=== PATIENT | female | born 1990 | race Caucasian/White ===

== ENCOUNTER → 2019-05-04 11:47 | Outpatient (BNVA) | payer MEDICARE, MEDICAID, SELFPAY | PROVIDERS: Family Provider Family Medicine; PCP Family Medicine; Visit Provider Nurse Practitioner | DX: F70 Mild intellectual disabilities (principal); F63.81 Intermittent explosive disorder; F41.1 Generalized anxiety disorder | CPT/HCPCS: 99214 ==

== ENCOUNTER → 2019-07-05 08:15 | Outpatient (BNVA) | payer MEDICARE, MEDICAID, SELFPAY | PROVIDERS: Family Provider Family Medicine; PCP Family Medicine; Visit Provider Nurse Practitioner | DX: F41.1 Generalized anxiety disorder (principal); F63.81 Intermittent explosive disorder; F70 Mild intellectual disabilities | CPT/HCPCS: 99213 ==

== ENCOUNTER → 2019-09-28 08:07 | Outpatient (BNVA) | payer MEDICARE, MEDICAID, SELFPAY | PROVIDERS: Family Provider Family Medicine; PCP Family Medicine; Visit Provider Nurse Practitioner | DX: F41.1 Generalized anxiety disorder (principal); F63.81 Intermittent explosive disorder; F70 Mild intellectual disabilities | CPT/HCPCS: 99213 ==

== ENCOUNTER → 2019-12-01 08:10 | Outpatient (BNVA) | payer MEDICARE, MEDICAID, SELFPAY | PROVIDERS: Family Provider Family Medicine; PCP Family Medicine; Visit Provider Nurse Practitioner | DX: F70 Mild intellectual disabilities (principal); F63.81 Intermittent explosive disorder; F41.1 Generalized anxiety disorder | CPT/HCPCS: 99214 ==

== ENCOUNTER → 2020-03-02 08:27 | Outpatient (BNVA) | payer MEDICARE, MEDICAID, SELFPAY | PROVIDERS: PCP Family Medicine; Visit Provider Nurse Practitioner | DX: F70 Mild intellectual disabilities (principal); F63.81 Intermittent explosive disorder; F41.1 Generalized anxiety disorder | CPT/HCPCS: 99213 ==

== ENCOUNTER → 2020-04-26 11:04 | Outpatient (BNVA) | payer MEDICARE, MEDICAID, SELFPAY | PROVIDERS: PCP Family Medicine; Visit Provider Nurse Practitioner Women's Health | DX: Z01.419 Encounter for gynecological examination (general) (routine) without abnormal findings (principal); N92.6 Irregular menstruation, unspecified | CPT/HCPCS: 88175 ==

== ENCOUNTER → 2020-05-16 07:37 | Outpatient (BNVA) | payer MEDICARE, MEDICAID, SELFPAY | PROVIDERS: PCP Family Medicine; Visit Provider Nurse Practitioner | DX: F70 Mild intellectual disabilities (principal); F63.81 Intermittent explosive disorder; F41.1 Generalized anxiety disorder | CPT/HCPCS: 99214 ==

== ENCOUNTER → 2020-05-31 14:58 | Outpatient (BNVA) | payer MEDICARE, MEDICAID, SELFPAY | PROVIDERS: PCP Family Medicine; Referring Provider Family Medicine; Visit Provider Podiatrist Foot & Ankle Surgery | DX: M24.571 Contracture, right ankle (principal); M21.611 Bunion of right foot | CPT/HCPCS: 73610; 73630 ==

== ENCOUNTER → 2020-06-15 08:12 | Outpatient (BNVA) | payer MEDICARE, MEDICAID, SELFPAY | PROVIDERS: PCP Family Medicine; Visit Provider Nurse Practitioner | DX: F41.1 Generalized anxiety disorder (principal); F63.81 Intermittent explosive disorder; F70 Mild intellectual disabilities | CPT/HCPCS: 99214 ==

== ENCOUNTER → 2020-07-11 13:17 | Outpatient (BNVA) | payer MEDICARE, MEDICAID, SELFPAY | PROVIDERS: PCP Family Medicine; Visit Provider Nurse Practitioner | DX: F41.1 Generalized anxiety disorder (principal); F63.81 Intermittent explosive disorder; F70 Mild intellectual disabilities | CPT/HCPCS: 99214 ==

== ENCOUNTER 2020-07-11 15:00 | Outpatient (CLI) | payer MEDICARE, MEDICAID, SELFPAY | END 2020-07-11 15:01 | disposition home or self-care (01) | LOC: SPT 15:01 | PROVIDERS: PCP Family Medicine; Visit Provider Podiatrist Foot & Ankle Surgery | DX: Z46.89 Encounter for fitting and adjustment of other specified devices (principal); M24.571 Contracture, right ankle; M25.579 Pain in unspecified ankle and joints of unspecified foot; M79.673 Pain in unspecified foot | CPT/HCPCS: 97760; L3030 ==

== ENCOUNTER 2020-08-10 11:24 | Emergency (ER) | payer MEDICARE, MEDICAID, SELFPAY ==
[2020-08-10 11:26] VITALS: BP 131/92; PULSE 111; RESP 16; TEMP 37.1; O2SAT 97; BMI 48.0
--- NOTE | 2020-08-10 11:35 | W.ED.ABDPA2 ---
HPI - Abdominal Pain General: Chief Complaint: Abdominal Pain Stated Complaint: ABD PAIN Time Seen by Provider: 08/10/20 11:27 Source: patient and other (caregiver) Mode of arrival: ambulatory Limitations: other (developmental delay) History of Present Illness: HPI narrative: This is a 29-year-old female patient with a history of developmental delay who lives in a fci and presents to the emergency department with a 12-hour history of right upper quadrant abdominal pain. There is associated nausea and vomiting. No fever. No known aggravating or relieving factors. No urinary symptoms. She went to her primary care provider's office and was advised to come to the emergency department to be evaluated. MD elicited complaint: abdominal pain Pertinent past history: none Onset (ago): hour(s) (12) Pain Consistency: constant Location: RUQ Severity: moderate Quality: stabbing Radiation: none Exacerbating factors: nothing Relieving factors: nothing Associated Symptoms: Reports anorexia, nausea and vomiting; Denies belching, bloating, change in bowel habits, change in stool character, chills, coffee ground emesis, constipation, GI cramping, diarrhea, dyspepsia, dysuria, excessive flatus, fever(s), heartburn, hematochezia, hematuria, hematemesis, fecal incontinence, loose stools, melena, poor appetite and syncope Review of Systems General: Reports: 10 or more systems reviewed and unremarkable except in HPI and below Const: Denies: fever(s) or chills Card: Denies: syncope GI: Reports: nausea and vomiting; Denies: hematemesis, coffee ground emesis, heartburn, diarrhea, constipation, bloating, GI cramping, belching, excessive flatus, fecal incontinence, change in bowel habits, change in stool character, hematochezia or melena : Denies: dysuria or hematuria PFS ED PFSH: Medical History Bipolar depression Chronic GERD Generalized anxiety disorder IBS (irritable bowel syndrome) more constipation Intermittent explosive disorder Irregular periods Mild intellectual disabilities No pertinent past medical history neghx: htn,dm,thyroid,dvt/pe PCP: Dr Henley Surgical History History of wisdom tooth extraction Family History Unknown Patient denies medical problems Denies family history of: hypertension, heart disease, stroke, hypercholesterolemia, thyroid problems. Patient is adopted and does not know all the details of her biological family. Physical Exam Const: COMMON NORMALS: no acute distress, patient oriented x3, no limitations, alert and well nourished NUTRITIONAL APPEARANCE: obese morbidly obese HENMT: COMMON NORMALS: normocephalic, atraumatic and moist oral mucous membranes HEAD & SCALP: normocephalic and atraumatic Neck/C-Spine: COMMON NORMALS: no meningeal signs and no JVD Resp: COMMON NORMALS: normal respiratory effort, No retractions, No use of accessory muscles, clear to auscultation bilaterally and percussion normal AUSCULTATION: clear to auscultation bilaterally PERCUSSION: percussion normal Cardio: COMMON NORMALS: no JVD, regular rate, regular rhythm, S1 normal heart sound present, S2 normal heart sound present, No gallops present (Cardio), No clicks present (Cardio), No murmurs present (Cardio), No rub (Cardio) and Peripheral pulses 2+ throughout RATE: regular rate RHYTHM: regular rhythm HEART SOUNDS: S1 normal heart sound present and S2 normal heart sound present PERIPHERAL PULSES: Peripheral pulses 2+ throughout GI: COMMON NORMALS: Normal to inspection, nondistended, normoactive bowel sounds present, Soft to palpation, No hepatosplenomegaly present, no masses and no bruits PALPATION: Yes Soft to palpation, Yes Tenderness to palpation present (GI) Details: RUQ, Yes Guarding due to palpation present (GI) in the RUQ, Yes No hepatosplenomegaly present and No Rebound tenderness present OTHER: positive Deutsch's sign Extremity: COMMON NORMALS: normal to inspection, full ROM, capillary refill normal, no calf tenderness and no pedal edema Neuro: COMMON NORMALS: patient oriented x3 SENSORIUM/ORIENTATION: Yes alert MENINGEAL SIGNS: Yes no meningeal signs Course Reevaluation(s): Reevaluation #1: Discussed lab and imaging findings in my conversation with the surgeon with the patient and her caregiver. Explained that she does not need hospital admission or require emergent surgery. Advised on what the surgeon suggested and the voiced understanding and in agreement with the plan. I will also give a prescription for some pain medication will last until she sees the surgeon. Time: 13:10 Consultations: Consultation #1: Discussed the patient with Dr. Tavarez, surgeon. He advised that since her liver enzymes normal and she does not appear to be septic she can be managed on an outpatient basis. He advised that she be discharged with a prescription for Augmentin 875 milligrams twice daily for 10 days. She should follow-up with him on Friday and she should be on a liquid protein diet until then. Time: 13:04 Vital Signs: Vital signs: Vital Signs Temperature 98.8 F 08/10/20 11:26 Pulse Rate 90 08/10/20 14:24 Respiratory Rate 16 08/10/20 14:24 Blood Pressure 131/88 08/10/20 14:24 Pulse Oximetry 97 08/10/20 14:24 MDM - Abdominal Pain MDM Narrative: Medical decision making narrative: 29-year-old female patient who presents to the emergency department with right upper quadrant pain and evaluation in the ED is consistent with acute cholecystitis. Liver enzymes are normal, white cell count just mildly elevated, and she is appropriate for outpatient therapy and to follow-up with the surgeon on an outpatient basis. She was given a dose of Zosyn in the emergency department and discharged home with a prescription for Augmentin. Medical Records: Attestation: I reviewed the patient's medical records. Lab Data: Attestation: I reviewed the patient's lab results. Labs: Lab Results 08/10/20 08/10/20 08/10/20 Range/Units 11:37 11:37 11:37 WBC 13.5 H (4.0-10.0) 10^3/ uL RBC 4.61 (4.1-5.3) 10^6/u L Hgb 13.6 (11.5-15.3) g/dL Hct 40.8 (37.0-47.0) % MCV 88.5 (81-99) fL MCH 29.5 (28.0-34.0) pg MCHC 33.3 (30.0-36.0) g/dL RDW 12.2 (12.1-15.1) % Plt Count 288 (130-400) 10^3/c mm MPV 10.1 (7.4-10.4) fL Neut % (Auto) 75.0 % Lymph % (Auto) 19.4 % [place] % (Auto) 5.0 % Eos % (Auto) 0.1 % Baso % (Auto) 0.3 % Neut # (Auto) 10.12 H (1.8-7.7) 10^3/u L Lymph # (Auto) 2.6 (0.8-4.8) 10^3/u L [place] # (Auto) 0.7 (0.2-0.9) 10^3/u L Eos # (Auto) 0.0 (0.0-0.8) 10^3/u L Baso # (Auto) 0.0 (0.0-0.1) 10^3/u L Nucleated RBC % (a uto) 0 % Nucleated RBCs # 0.0 /100WBC Sodium 133 L (136-145) mmol/L Potassium 3.8 (3.5-5.1) mmol/L Chloride 94 L (98-107) mmol/L Carbon Dioxide 24 (22-29) mmol/L Anion Gap 18.8 (5-19) BUN 5 L (6-20) mg/dL Creatinine 0.4 L (0.5-0.9) mg/dL GFR Calculation 186.2 H (90-130) mL/min Glucose 104 (65-115) mg/dL Calculated Osmolal ity 274 L (285-295) mOsm/k g Calcium 8.4 L (8.5-10.5) mg/dL Total Bilirubin 0.3 (0.15-1.2) mg/dL AST 17 (0-32) U/L ALT 19 (0-33) U/L Alkaline Phosphata se 73 (35-105) IU/L C-Reactive Protein 12.9 H (0.0-4.9) mg/L Total Protein 7.0 (6.6-8.7) g/dL Albumin 3.9 (3.5-5.2) g/dL Globulin 3.1 (1.3-4.6) g/dL Lipase 18 (13-60) U/L HCG, Qual Negative (Negative) Urine Color (Yellow) Urine Appearance (CLEAR) Urine pH (5-7) Ur Specific Gravit y (1.005-1.030) Urine Protein (Negative) Urine Glucose (UA) (Normal) Urine Ketones (Negative) Urine Blood (Negative) Urine Nitrate (Negative) Urine Bilirubin (Negative) Urine Urobilinogen (Negative) mg/dL Ur Leukocyte Naz ase (Negative) Urine RBC (0-2) /hpf Urine WBC (0-5) /hpf Ur Squamous Epith Cells (0-5) /hpf Amorphous Sediment Urine Bacteria (NONE) /hpf 08/10/20 Range/Units 11:53 WBC (4.0-10.0) 10^3/ uL RBC (4.1-5.3) 10^6/u L Hgb (11.5-15.3) g/dL Hct (37.0-47.0) % MCV (81-99) fL MCH (28.0-34.0) pg MCHC (30.0-36.0) g/dL RDW (12.1-15.1) % Plt Count (130-400) 10^3/c mm MPV (7.4-10.4) fL Neut % (Auto) % Lymph % (Auto) % [place] % (Auto) % Eos % (Auto) % Baso % (Auto) % Neut # (Auto) (1.8-7.7) 10^3/u L Lymph # (Auto) (0.8-4.8) 10^3/u L [place] # (Auto) (0.2-0.9) 10^3/u L Eos # (Auto) (0.0-0.8) 10^3/u L Baso # (Auto) (0.0-0.1) 10^3/u L Nucleated RBC % (a uto) % Nucleated RBCs # /100WBC Sodium (136-145) mmol/L Potassium (3.5-5.1) mmol/L Chloride (98-107) mmol/L Carbon Dioxide (22-29) mmol/L Anion Gap (5-19) BUN (6-20) mg/dL Creatinine (0.5-0.9) mg/dL GFR Calculation (90-130) mL/min Glucose (65-115) mg/dL Calculated Osmolal ity (285-295) mOsm/k g Calcium (8.5-10.5) mg/dL Total Bilirubin (0.15-1.2) mg/dL AST (0-32) U/L ALT (0-33) U/L Alkaline Phosphata se (35-105) IU/L C-Reactive Protein (0.0-4.9) mg/L Total Protein (6.6-8.7) g/dL Albumin (3.5-5.2) g/dL Globulin (1.3-4.6) g/dL Lipase (13-60) U/L HCG, Qual (Negative) Urine Color Yellow (Yellow) Urine Appearance Clear (CLEAR) Urine pH 5 (5-7) Ur Specific Gravit y 1.015 (1.005-1.030) Urine Protein Neg (Negative) Urine Glucose (UA) Norm (Normal) Urine Ketones Negative (Negative) Urine Blood 3+ H (Negative) Urine Nitrate Negative (Negative) Urine Bilirubin Neg (Negative) Urine Urobilinogen Norm (Negative) mg/dL Ur Leukocyte Naz ase Negative (Negative) Urine RBC 5-10 H (0-2) /hpf Urine WBC 0-4 H (0-5) /hpf Ur Squamous Epith Cells 0-4 H (0-5) /hpf Amorphous Sediment Not Reportable Urine Bacteria Trace (NONE) /hpf Imaging Data ^: US: Attestation: I personally reviewed and interpreted this imaging study as follows: Radiologist's impression: [address] [id number] ReportSigned Patient: Rio Saucedo #: [id number]: 1990Acct#:[id number]/Sex: 29 / FADM Date: 08/10/20Loc: ERRoom/Bed:Attending Dr: Ordering Provider/Ordering MD: Ava Singh MD, [facility] [place] Date of Service: 08/10/20 Procedure(s): US gall bladder 32551 Accession Number(s): [id number] Report Number: [id number] WS: [id number] ULTRASOUND ABDOMEN LIMITED CLINICAL INFORMATION: RUQ pain COMPARISON: None. FINDINGS: Technically difficult examination due to bowel gas. Liver Size: Upper limits of normal Craniocaudal length: 16.0 cm. Echogenicity: Coarse Surface nodularity: None. Mass (size and location): None. Bile ducts Intrahepatic ducts: Normal. Common bile duct is not well visualized. Gallbladder Cholelithiasis. Gallstones: Present Gallbladder sludge: None. Gallbladder wall thickenin.9 mm Pericholecystic fluid: None. Right upper quadrant tenderness. Pancreas Not well visualized Right kidney: Normal. Hydronephrosis: None. Size: 9.9 cm x 5.3 cm x 4.8 cm. Abdominal aorta and IVC Visualized portions are normal. Ascites: None. US/US gall bladder 02074 IMPRESSION: 1. Liver size upper limits of normal with diffuse fatty infiltration. 2. Cholelithiasis with mild gallbladder wall thickening. Recommend correlation for cholecystitis. 3. No pericholecystic fluid. Common bile duct not well visualized. 4. No hydronephrosis in right kidney. Dictated By:Sundeep Escalante MDSigned By:Sundeep Escalante MDSigned Date/Time:08/10/20 1247DD/ 1243 Discharge Plan Discharge Patient Disposition: Home Clinical Impression: Acute calculous cholecystitis Condition: Stable Prescriptions: New Augmentin 875-125 mg tablet 1 tab PO BID Qty: 20 RF: 0 hydrocodone-acetaminophen 5-325 mg tablet 1 tab PO Q8H PRN (Reason: cholecystitis) Qty: 12 RF: 0 Continued omeprazole 20 mg capsule,delayed release(DR/EC) 20 mg PO DAILY@0700 RF: 0 levocetirizine [Xyzal] 5 mg tablet 5 mg PO DAILY@0700 RF: 0 Pepto-Bismol Max St 525 mg/15 mL suspension 525 mg PO Q4H PRN (Reason: Diarrhea) RF: 0 acetaminophen [Tylenol Extra Strength] 500 mg tablet 1,000 mg PO Q6H PRN (Reason: PAIN/ELEVATED TEMP) RF: 0 oxcarbazepine [Trileptal] 150 mg tablet 150 mg PO BID@699,1999 RF: 0 oxcarbazepine [Trileptal] 600 mg tablet 600 mg PO BID@699,1999 RF: 0 Lactobacillus acidophilus [Acidophilus] Capsule 175 mg PO BID@699,1999 RF: 0 (DME) sole supports See Rx Instructions .Route .MEDSUPPLY Qty: 1 RF: 0 cholestyramine (with sugar) 4 gram Powder 4 g PO DAILY@0700 RF: 0 haloperidol 5 mg tablet 5 mg PO DAILY PRN (Reason: Agitation) RF: 0 levonorgestrel-ethinyl estrad 0.15-0.03 mg Tablet 1 tab PO DAILY@1999 RF: 0 Milk of Magnesia 400 mg/5 mL Suspension See Rx Instructions .ROUTE .COMPLEX PRN (Reason: Constipation) RF: 0 Abilify 30 mg tablet 30 mg PO DAILY@1999 RF: 0 Antacid (calcium carbonate) 320 mg calcium (750 mg) Tablet,Chewable 640 mg PO Q12H PRN (Reason: Acid Reflux) RF: 0 Remeron 15 mg tablet 15 mg PO BEDTIME@1999 RF: 0 Zoloft 50 mg tablet 50 mg PO DAILY@699 RF: 0 Risperdal 1 mg tablet 1 mg PO BID@699,1999 RF: 0 Lamictal 100 mg tablet 100 mg PO BID@699,1999 RF: 0 diclofenac sodium 1 % Gel 1 g TOPICAL BID@699,1999 RF: 0 Discharge Orders: Discharge ED (Routine); Ordered 08/10/20 Ordered By: Ava Singh Referrals: Martinez Tavarez MD [Physician] - 08/14/20 Lloyd Henley MD [Primary Care Provider] - Discharge Diet: As Directed and Low Fat Discharge Activity: Increase activity as tolerated Patient Instructions: Cholecystitis (ED), Opioid Safety Activity Restrictions/Additional Instructions: Return for any new or worsening symptoms. Follow-up with the surgeon, Dr. Tavarez on 08/14/2020. Consume a liquid protein diet until you are evaluated by the surgeon, such as boost or Ensure. Avoid fatty foods as this will only worsen your pain. Take the antibiotic as prescribed and the pain medication as needed. 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
[2020-08-10 12:02] LABS: Basophils % 0.3 %; Eosinophils % 0.1 %; HCG Qualitative Urine. Negative (Negative); Hematocrit 40.8 % (37.0-47.0); Hemoglobin 13.6 g/dL (11.5-15.3); Lymphocytes # 2.6 10^3/uL (0.8-4.8); Lymphocytes % 19.4 %; Mean Corpuscular HGB Conc 33.3 g/dL (30.0-36.0); Mean Corpuscular Hemoglobin 29.5 pg (28.0-34.0); Mean Corpuscular Volume 88.5 fL (81-99); Mean Platelet Volume 10.1 fL (7.4-10.4); Monocytes # 0.7 10^3/uL (0.2-0.9); Neutrophils # 10.12 10^3/uL (1.8-7.7); Nucleated Red Blood Cells % 0 %; Platelet Count 288 10^3/cmm (130-400); Positive C 1; Red Blood Count 4.61 10^6/uL (4.1-5.3); Red Cell Distribution Width 12.2 % (12.1-15.1); White Blood Count 13.5 10^3/uL (4.0-10.0)
[2020-08-10 12:14] LABS: Add Urine Microscopic? YES; Bilirubin Urine Neg (Negative); Blood Urine 3+ (Negative); Glucose Urine UA Norm (Normal); Ketones Urine Negative (Negative); Leukocyte Esterase Urine Negative (Negative); Nitrate Urine Negative (Negative); Protein Urine Neg (Negative); Specific Gravity, Urine 1.015 (1.005-1.030); Urine Appearance Clear (CLEAR); Urine Color Yellow (Yellow); Urobilinogen Urine Norm (Negative); WBC Urine 0-4 /hpf (0-5); pH Urine 5 (5-7)
[2020-08-10 12:15] LABS: Add Urine Culture? Yes; Bacteria Urine TRACE /hpf; Squamous Epithelial Cell Urine 0-4 /hpf (0-5)
[2020-08-10 12:30] LABS: Alanine Aminotransferase 19 U/L (0-33); Albumin Level 3.9 g/dL (3.5-5.2); Alkaline Phosphatase 73 IU/L (35-105); Anion Gap 18.8 (5-19); Aspartate Amino Transferase 17 U/L (0-32); Blood Urea Nitrogen 5 mg/dL (6-20); C Reactive Protein 12.9 mg/L (0.0-4.9); Calcium 8.4 mg/dL (8.5-10.5); Carbon Dioxide 24 mmol/L (22-29); Chloride 94 mmol/L (98-107); Globulin 3.1 g/dL (1.3-4.6); Glomerular Filtration Rate 186.2 mL/min (90-130); Glucose 104 mg/dL (65-115); Lipase 18 U/L (13-60); Osmolality Calculated 274 mOsm/kg (285-295); Potassium 3.8 mmol/L (3.5-5.1); Sodium 133 mmol/L (136-145); Total Bilirubin 0.3 mg/dL (0.15-1.2)
[2020-08-10 12:51] LABS: Slide Review Slide Review Perform
[2020-08-10] MEDS: piperacillin-tazobactam 3.375 GM in sodium chloride 0.9% (plus) 50 ML IV (13:20)
[2020-08-10 14:24] VITALS: BP 131/88; PULSE 90; RESP 16; O2SAT 97
== END 2020-08-10 14:28 | disposition home or self-care (01) ==
PROVIDERS: Emergency Provider Family Medicine; PCP Family Medicine
DX: K80.00 Calculus of gallbladder with acute cholecystitis without obstruction (principal)
CPT/HCPCS: 76705; 80053; 81001; 81025; 83690; 85025; 86140; 87086; 96365; 99283; J2543

== ENCOUNTER → 2020-08-22 14:20 | Outpatient (BNVA) | payer MEDICARE, MEDICAID, SELFPAY | PROVIDERS: PCP Family Medicine; Visit Provider Nurse Practitioner | DX: F41.1 Generalized anxiety disorder (principal); F63.81 Intermittent explosive disorder; F70 Mild intellectual disabilities | CPT/HCPCS: 99214 ==

== ENCOUNTER → 2020-08-30 13:44 | Outpatient (BNVA) | payer MEDICARE, MEDICAID, SELFPAY | PROVIDERS: PCP Family Medicine; Visit Provider Surgery | DX: K80.00 Calculus of gallbladder with acute cholecystitis without obstruction (principal); Z20.822 Contact with and (suspected) exposure to COVID-19 | CPT/HCPCS: 87635 ==

== ENCOUNTER 2020-09-04 09:11 | Day surgery (SDC) | payer MEDICARE, MEDICAID, SELFPAY ==
[2020-09-01 14:16] VITALS: BMI 49.4
[2020-09-04] VITALS (9 sets, daily range): BP systolic 98–157; BP diastolic 63–105; PULSE 72–99; RESP 10–20; TEMP 36.1–36.6; O2SAT 90–99
[2020-09-04] MEDS: sodium chloride 0.9% 1,000 ML 30 ML IV (10:10)
[2020-09-04] MEDS: heparin 5,000 unit/mL INJ 1 mL 3000 UNIT SUBCUT (10:20)
--- NOTE | 2020-09-04 10:50 | ANES.PREANE2 ---
Pre-Anesthetic Assessment Pre-Anesthetic Assessment: Height/Weight: Height 1.6 m Weight 126.552 kg Temp Pulse Resp BP Pulse Ox 96.9 F L 99 18 157/105 99 09/04/20 10:18 09/04/20 10:18 09/04/20 10:18 09/04/20 10:18 09/04/20 10:18 Preop Diagnosis: Symptomatic cholelithiasis Proposed Procedure: Operation Date: 09/04/20 11:00 Proposed Procedures p Lap possible open cholecystectomy 67584 K80.00(Not Applicable) - Martinez Tavarez MD Was Beta Nel taken within 24 hours: N/A Was Clonidine taken within 24 hours: N/A Last intake: Intake Last Liquid Date 09/03/20 Last Liquid Time 23:00 Last Solid Date 09/03/20 Last Solid Time 23:00 Social: Social History: No alcohol and No tobacco Exam: Pre-Anes Outpt Exam: alert, oriented x 3, clear to auscultation bilaterally and regular rate & rhythm Airway: Submandibular: WNL Cervical ROM: WNL MP: 2 Dentition: Full GI: GI: GERD Metabolic: Metabolic: Morbid obesity Neuropsych: Neuropsych: Anxiety and Seizure Comments: Mental disability Anesthetic Plan: ASA status: 3 Anesthesia: General Risk of > 500 ml blood loss (7ml/kg in children): No PFSH Anesthesia PFSH: Medical History Bipolar depression Chronic GERD Generalized anxiety disorder IBS (irritable bowel syndrome) more constipation Intermittent explosive disorder Irregular periods Mild intellectual disabilities No pertinent past medical history neghx: htn,dm,thyroid,dvt/pe PCP: Dr Henley Surgical History History of wisdom tooth extraction Family History Unknown Patient denies medical problems Denies family history of: hypertension, heart disease, stroke, hypercholesterolemia, thyroid problems. Patient is adopted and does not know all the details of her biological family. Social History Smoking and tobacco status: current every day smoker Female Reproductive History: Date of last menstrual period: 07/26/20 Data Anesthesia Cardiac Studies: No Data to Display
--- NOTE | 2020-09-04 11:21 | W.PM.OPSUD ---
Surgery/Procedure H&P Update DATE OF PROCEDURE: September 04, 2020 DATE H&P PERFORMED: 08/14/20 H&P UPDATE INFORMATION: I have reviewed H&P completed within last 30 days, I have examined patient prior to procedure and No changes to prior documentation CHANGES TO PREVIOUS DOCUMENTATION: Had opportunity to talk with Ms. Babcock patient's guardian and discuss the procedure and obtain an informed consent. PREOP DIAGNOSIS: Symptomatic cholelithiasis PRIMARY INDICATION FOR PROCEDURE: The same PLANNED PROCEDURE: Operation Date: 09/04/20 11:00 Proposed Procedures p Lap possible open cholecystectomy 47516 K80.00(Not Applicable) - Martinez Tavarez MD
[2020-09-04] MEDS: lidocaine 2% INJ 20 mL INJECTION (12:09)
--- NOTE | 2020-09-04 12:56 | P.OP_ITS ---
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 Implants: Pieces of Surgicel at the gallbladder fossa Specimens removed/disposition: Gallbladder and contents/genital lobe of the liver Surgeon: Martinez Tavarez Compensation Analyst: Surgical mishel Trejo Circulating nurse Demetra Swan Anesthesia: General (GETA aeronautical inspector Shalonda) Estimated blood loss (mL): 10 IV fluids (mL): 900 Condition: stable Disposition: same day Brief History: Symptomatic cholelithiasis. Full H&P informed consent per chart. Procedure: Patient was identified in the holding area and taken back to the operative suite, placed in supine position intubated by anesthesia . Time-out was done verifying the patient's name/date of /planned procedure and destination after the procedure, all were in agreement.SCDs confirmed to be functioning, preoperative antibiotics administered per protocol, and beta matt protocol was confirmed. Heparin subcu was given on-call to the OR. Patient was appropriately secured to the table, footboard was applied to the OR table, before prep and drape anesthesia was asked to tilt the table back and forth to make sure that the patient is appropriately secured and she was. Prep and drape of the abdomen was done under the usual sterile technique, followed by that supraumbilical skin incision,skin incision was done by a 15 blade knife, and stay sutures were applied to the fascia and Simpson trocar technique was used to enter the abdominal without injuring any abdominal viscera, started by low flow gas insufflation followed by a high flow, started with a 10 mm laparoscope and under direct vision there was no evidence of any injuries, the scope then switched to a 30? ,10 millimeter scope and under direct visualization 5 millimeter trocar was inserted in the epigastric region followed by two 5 mm trocars were inserted in the right upper quadrant that was done after injection of local lidocaine 2% at all incision sites. Gallbladder showed chronic calculus cholecystitis &with adhesions/congenital lobe of the liver attached to the mid body of the gallbladder at the medial aspect less than 2 cm in diameter. Patient was then positioned in the head up and tilted to the left Ratcheted forceps were introduced into the lateral most 5mm port and was applied unto the fundus of the gallbladder cephalad and using Bullet forceps the infundibulum of the gallbladder was retracted laterally. Using [place] forceps then L-hook cautery to dissect the peritoneum overlying the Calot's triangle which was then opened medially and laterally until the cystic duct and the cystic artery were skeletonized. Dissection was carried along the body of the gallbladder and after ensuring critical view of safety was identfied. Cystic duct and cystic artery where seen connected to the gallbladder. Clips were applied on the cystic duct towards the common bile duct 1 towards the gallbladder then divided is in sharp scissors, 2 clips were then applied onto the cystic artery and 1 towards the gallbladder and divided by sharp scissors. Dissection was then carried along of the gallbladder from the gallbladder fossa with the attached congenital lobe of the liver, using cautery as well as sharp dissection with heat energy. The gallbladder then was dissected out from the gallbladder fossa totally , cholecystectomy was then achieved and was placed in an Endo Catch bag and then retrieved from the Simpson trocar site under direct visualization using a 5 mm 30? scope through the epigastric trocar, specimen was then passed to the circulating nurse to go for permanent pathology,irrigation and hemostasis was done to the gallbladder fossa after hemostasis was secured, final survey laparoscopy was done that showed no injuries. Suction irrigation was obtained, pieces of Surgicel was placed at the gallbladder fossa. Final look laparoscopy showed no evidence of injuries or bleeding. The supraumbilical fascial defect was then closed using interrupted PDS sutures using a fascial closure device ;Calixto Castillo under direct visualization Gas was allowed to deflate,Trocars were then taken out under direct vision there was no evidence of bleeding Specimen was passed to the circulating nurse for permanent pathology. No drains were placed and the supraumbilical incision as well as all trocar sites were closed by by 4-0 Monocryl to approximate the skin edges of the supraumbilical incision, dressing was applied in the form of Dermabond and the patient patient got extubated and was taken to recovery area in a stable condition. Count of sponges, needles and instruments were completed at the end of the pr ocepho[place] I was present for the whole entire procedure.
--- NOTE | 2020-09-04 13:30 | PC.NURSE ---
Pt sleepy but arousable. Pt has four incision sites with exofin and no dressing. Pt showing sinus rhythm on the monitor.
[2020-09-04] MEDS: fentaNYL 50 mcg/mL INJ 2mL IVP (13:34)
[2020-09-04] MEDS: HYDROcodone-acetaminophen 5-325 mg Tablet 1 TAB PO (14:55)
--- NOTE | 2020-09-04 17:09 | ANE.PACU2 ---
Inpatient post-anesthesia follow up: Airway intact: Yes Vital signs: Temperature 97 F Pulse Rate 72 Respiratory Rate 18 Blood Pressure 139/72 Pulse Oximetry 95 Oxygen Delivery Me thod Room Air Oxygen Flow Rate 2 Fraction of Inspir ed Oxygen Hydration adequate: Yes Nausea and vomiting: No Pain level: 3 Mental status: Baseline
== END 2020-09-04 15:10 | disposition home or self-care (01) ==
PROVIDERS: PCP Family Medicine; Visit Provider Surgery
PROC: 0FT44ZZ Resection of Gallbladder, Percutaneous Endoscopic Approach (ICD-10-PCS; CPT 47562; principal; 2020-09-04 10:50)
DX: K80.10 Calculus of gallbladder with chronic cholecystitis without obstruction (principal); K21.9 Gastro-esophageal reflux disease without esophagitis; E66.01 Morbid (severe) obesity due to excess calories; Z68.42 Body mass index [BMI] 45.0-49.9, adult; F41.9 Anxiety disorder, unspecified; F17.210 Nicotine dependence, cigarettes, uncomplicated
CPT/HCPCS: 47562; 88304; 96372; J0295; J1644; J2250; J2405; J2704; J3010; J3490; J7030

== ENCOUNTER → 2020-10-10 07:49 | Outpatient (BNVA) | payer MEDICARE, MEDICAID, SELFPAY | PROVIDERS: PCP Family Medicine; Visit Provider Nurse Practitioner | DX: F41.1 Generalized anxiety disorder (principal); F63.81 Intermittent explosive disorder; F70 Mild intellectual disabilities | CPT/HCPCS: 99214 ==

== ENCOUNTER 2020-11-03 12:58 | Outpatient (CLI) | payer MEDICARE, MEDICAID, SELFPAY ==
--- NOTE | 2020-11-03 13:00 | XR_ITS ---
WS: [id number] RIGHT ANKLE: 3 VIEW(S) TECHNIQUE: AP, oblique(s) and lateral. HISTORY: M24.571 - Contracture, right ankle COMPARISON: 05/31/2020 Normal anatomic alignment with no fracture or dislocation. No joint effusion or widening of the ankle mortise. No significant degenerative changes at the joint spaces. Soft tissue edema surrounds the ankle. No joint effusion. XR/XR ankle RT min 3V* [id number] IMPRESSION: Mild soft tissue edema at the ankle. No fractures.
== END 2020-11-03 12:59 | disposition home or self-care (01) ==
LOC: RADWPI 13:15
PROVIDERS: PCP Family Medicine; Visit Provider Podiatrist Foot & Ankle Surgery
DX: M24.571 Contracture, right ankle (principal); R60.0 Localized edema
CPT/HCPCS: 73610

== ENCOUNTER → 2020-12-04 10:22 | Outpatient (BNVA) | payer MEDICARE, MEDICAID, SELFPAY | PROVIDERS: PCP Family Medicine; Visit Provider Obstetrics & Gynecology | DX: R73.9 Hyperglycemia, unspecified (principal); N94.6 Dysmenorrhea, unspecified | CPT/HCPCS: 83036; 83525; 84443; 85025 ==

== ENCOUNTER → 2020-12-20 16:11 | Outpatient (BNVA) | payer MEDICARE, MEDICAID, SELFPAY | PROVIDERS: PCP Family Medicine; Visit Provider Obstetrics & Gynecology | DX: N94.6 Dysmenorrhea, unspecified (principal) | CPT/HCPCS: 76830 ==

== ENCOUNTER → 2021-01-11 13:33 | Outpatient (BNVA) | payer MEDICARE, MEDICAID, SELFPAY | PROVIDERS: PCP Family Medicine; Visit Provider Obstetrics & Gynecology | DX: E03.9 Hypothyroidism, unspecified (principal) | CPT/HCPCS: 84443 ==

== ENCOUNTER → 2021-02-08 08:36 | Outpatient (BNVA) | payer MEDICARE, MEDICAID, SELFPAY | PROVIDERS: PCP Family Medicine; Visit Provider Obstetrics & Gynecology | DX: N94.5 Secondary dysmenorrhea (principal) | CPT/HCPCS: 87635 ==

== ENCOUNTER 2021-02-13 10:07 | Day surgery (SDC) | payer MEDICARE, MEDICAID, SELFPAY ==
[2021-02-08 10:52] VITALS: BMI 47.6
--- NOTE | 2021-02-08 11:26 | P.ANESASSM_ITS ---
Pre-Anesthetic Assessment Pre-Anesthetic Assessment: Height/Weight: Height 1.6 m Weight 122.016 kg Preop Diagnosis: Symptomatic cholelithiasis Proposed Procedure: Operation Date: 02/13/21 11:50 Proposed Procedures p Hysteroscopy 80594 86838 N94.5(Not Applicable) - Candice Adam MD s Dilation And Curettage (D&C)(Not Applicable) - Candice Adam MD Was Beta Nel taken within 24 hours: N/A Was Clonidine taken within 24 hours: N/A Social: Social History: No alcohol and No tobacco Exam: Pre-Anes Outpt Exam: alert, oriented x 3, clear to auscultation bilat erally and regular rate & rhythm Airway: Submandibular: WNL Cervical ROM: WNL MP: 3 Dentition: Chipped and Full Additional comments: Hoarseness GI: GI: GERD Metabolic: Metabolic: DM, Morbid obesity and Thyroid Neuropsych: Neuropsych: Anxiety, Bipolar, Depression and Seizure Anesthetic Plan: ASA status: 3 Anesthesia: General Risk of > 500 ml blood loss (7ml/kg in children): No PFSH Anesthesia PFSH: Medical History Bipolar depression Chronic GERD Generalized anxiety disorder IBS (irritable bowel syndrome) more constipation Intermittent explosive disorder Irregular periods Mild intellectual disabilities No pertinent past medical history neghx: htn,dm,thyroid,dvt/pe PCP: Dr Henley [facility] Right upper quadrant abdominal pain Surgical History History of laparoscopic cholecystectomy August 2020 History of wisdom tooth extraction Family History Unknown Patient denies medical problems Denies family history of: hypertension, heart disease, stroke, hypercholesterolemia, thyroid problems. Patient is adopted and does not know all the details of her biological family. Other Cancer Denies family history of Colon cancer Ovarian cancer Thyroid cancer Breast cancer Uterine cancer Female Reproductive History: Date of last menstrual period: 07/26/20 Data Anesthesia Cardiac Studies: No Data to Display
[2021-02-13] VITALS (8 sets, daily range): BP systolic 113–127; BP diastolic 75–91; PULSE 79–120; RESP 15–18; TEMP 36.4–36.8; O2SAT 97–100
[2021-02-13 10:43] LABS: OR HCG Qualitative Urine Negative (Negative)
[2021-02-13 11:08] LABS: Glucose Point of Care 99 mg/dL (70-110)
[2021-02-13] MEDS: sodium chloride 0.9% 1,000 ML 30 ML IV (11:09)
[2021-02-13] MEDS: ketorolac 30 mg/mL INJ IVP (11:14)
[2021-02-13] MEDS: acetaminophen 1,000 MG/100 ML PIGGYBACK 400 MG IV (11:14)
--- NOTE | 2021-02-13 11:35 | P.ANESUD_ITS ---
Pre-Anesthetic Update Pre-Anesthetic Assessment: Date of Surgery/Procedure: 02/13/21 Preop Laurita gnosis: uterine mass, cervical mass, dysmenorrhea Proposed Procedure: Operation Date: 02/13/21 12:40 Proposed Procedures p Hysteroscopy w/ Myosure(Not Applicable) - Candice Adam MD s Dilation And Curettage (D&C)(Not Applicable) - Candice Adam MD Any changes to Pre-Anesthetic Assessment?: Yes (Right upper pre central incisor chipped) Last Intake: Intake Last Liquid Date 02/12/21 Last Liquid Time 19:00 Last Solid Date 02/12/21 Last Solid Time 18:00 Labs Last 48hrs: Laboratory Results - last 48 hr 02/13/21 02/13/21 10:40 11:06 POC Glucose 99 Urine HCG, Qual Negative Vitals: Temperature 97.6 F 02/13/21 10:27 Temperature Source Temporal Artery S can 02/13/21 10:27 Pulse Rate 84 02/13/21 10:27 Respiratory Rate 18 02/13/21 10:27 Blood Pressure 126/87 02/13/21 10:27 Blood Pressure Isha n 100 02/13/21 10:27 Pulse Oximetry 99 02/13/21 10:27 Oxygen Delivery Me thod 02/13/21 10:28 Exam: Pre-Anes Outpt Exam: alert, oriented x 3, clear to auscultation bilaterally and regular rate & rhythm Cardiac Studies: No Data to Display
--- NOTE | 2021-02-13 12:52 | W.PM.OPSUD ---
Surgery/Procedure H&P Update DATE OF PROCEDURE: February 13, 2021 DATE H&P PERFORMED: 02/08/21 H&P UPDATE INFORMATION: I have reviewed H&P completed within last 30 days, I have examined patient prior to procedure and No changes to prior documentation PREOP DIAGNOSIS: uterine mass, cervical mass, dysmenorrhea PLANNED PROCEDURE: Operation Date: 02/13/21 12:40 Proposed Procedures p Hysteroscopy w/ Myosure(Not Applicable) - Candice Adam MD s Dilation And Curettage (D&C)(Not Applicable) - Candice Adam MD Related Problem List Diagnoses (1) Cervical mass: (2) Uterine mass: (3) Secondary dysmenorrhea:
[2021-02-13] MEDS: miSOPROStol 200 mcg Tablet 800 MCG VAGINAL (13:27)
--- NOTE | 2021-02-13 13:53 | PM.OP ---
Operative Report Date of procedure: February 13, 2021 Pre-op Diagnosis: uterine mass, cervical mass, dysmenorrhea Post-op diagnosis: same Post-op Findings: cervical polyp, appearance of adenomyosis with hysteroscopy Procedure Done: hysteroscopy, dilation and curettage with myosure Specimens removed/disposition: endometrial curettings, endocervical polyp to pathology Surgeon: Candice Adam Anesthesia: General Estimated blood loss (mL): 5 IV fluids (mL): 900 Complications: none Findings: 9 week sized uterus hysteroscopy deficit of 300 ml Condition: stable Disposition: PACU Procedure: The patient was taken to the operating room where monitored anesthesia was administered and to be adequate. She was prepped and draped in the normal sterile fashion in the dorsal lithotomy position in [facility]. A weighted speculum was placed into the vagina and the anterior lip of the cervix grasped with a single-tooth tenaculum. The uterus was sounded to 9 cm. The cervix was dilated to 15 [place]. The hysteroscope was advanced into the endometrial cavity. There was excessive tissue that was very erythematous and a small endocervical polyp visualized. The MyoSure device was activated and the tissue was removed. Pictures were taken pre and post procedure. All instruments were removed. The patient tolerated the procedure well. Sponge lap and needle counts were correct x3. She was taken to the recovery room in stable condition.
[2021-02-13] MEDS: fentaNYL 50 mcg/mL INJ 2mL IVP (13:59)
--- NOTE | 2021-02-13 14:02 | PM.DCS ---
Discharge Providers Date of Discharge: February 13, 2021 Attending Provider at Discharge: Candice Adam MD Primary Care Provider: Lloyd Henley MD Diagnoses at Discharge Discharge Diagnosis (1) Cervical mass: Status: Acute (2) Uterine mass: Status: Acute (3) Secondary dysmenorrhea: Status: Acute Reason for Visit Reason for Visit: Dysmenorrhea Hospital Course Hospital Course The patient was admitted for surgery. She did well postoperatively and was ready for discharge. Discharge Data Data Completed and Pending: Pending at discharge Category Date Time Status ES surgery / GI i mages Routine Exams 02/13/21 12:30 Taken Pathology: Surgic al [PTH] Routine Pth 02/13/21 13:56 Ordered Labs from last 24 hours 02/13/21 02/13/21 11:06 10:40 POC Glucose 99 Urine HCG, Qual Negative Vitals: Last Vital Signs Temp 97.6 F 02/13/21 10:27 Pulse 84 02/13/21 10:27 Resp 18 02/13/21 10:27 BP 126/87 02/13/21 10:27 Pulse Ox 99 02/13/21 10:27 Discharge Plan Discharge Patient Disposition: Home Condition: Stable Prescriptions: Continued levocetirizine [Xyzal] 5 mg tablet 5 mg PO DAILY@0700 RF: 0 Pepto-Bismol Max St 525 mg/15 mL suspension 525 mg PO Q4H PRN (Reason: Diarrhea) RF: 0 acetaminophen [Tylenol Extra Strength] 500 mg tablet 1,000 mg PO Q6H PRN (Reason: PAIN/ELEVATED TEMP) RF: 0 oxcarbazepine [Trileptal] 150 mg tablet 150 mg PO BID@ RF: 0 omeprazole 20 mg capsule,delayed release(DR/EC) 20 mg PO BID RF: 0 oxcarbazepine [Trileptal] 600 mg tablet 600 mg PO BID@ RF: 0 Lactobacillus acidophilus [Acidophilus] Capsule 175 mg PO BID@ RF: 0 Zoloft 50 mg tablet 50 mg PO DAILY@0700 Qty: 30 RF: 1 Risperdal 1 mg tablet 1 mg PO BID@699,1999 Qty: 60 RF: 1 Lamictal 100 mg tablet 100 mg PO BID@ Qty: 60 RF: 1 (DME) Spectrum AFO to the right foot See Rx Instructions .Route .MEDSUPPLY Qty: 1 RF: 0 (DME) sole supports See Rx Instructions .Route .MEDSUPPLY Qty: 1 RF: 0 levothyroxine 100 mcg capsule 100 mcg PO DAILY Qty: 90 RF: 4 metformin 500 mg tablet 1,000 mg PO BID Qty: 120 RF: 0 cholestyramine (with sugar) 4 gram Powder 4 g PO DAILY@0700 RF: 0 haloperidol 5 mg tablet 5 mg PO DAILY PRN (Reason: Agitation) RF: 0 levonorgestrel-ethinyl estrad 0.15-0.03 mg Tablet 1 tab PO DAILY@2000 RF: 0 magnesium hydroxide [Milk of Magnesia] 400 mg/5 mL Suspension See Rx Instructions .ROUTE .COMPLEX PRN (Reason: Constipation) RF: 0 calcium carbonate [Antacid (calcium carbonate)] 320 mg calcium (750 mg) Tablet,Chewable 640 mg PO Q12H PRN (Reason: Acid Reflux) RF: 0 Discharge Orders: Discharge Order (Routine); Ordered 02/13/21 Ordered By: Candice Adam Discharge Attestations Time Spent in Discharge Care*: less than 30 min Quality Metrics Clinical Quality Measures During this hospital stay, did patient experience: None Coding Level of Care Code Acute Chg FW DC note Diagnoses Cervical mass N88.8 Uterine mass N85.8 Secondary dysmenorrhea N94.5
--- NOTE | 2021-02-13 15:42 | ANE.PACU2 ---
Inpatient post-anesthesia follow up: Airway intact: Yes Vital signs: Temperature 98.2 F Pulse Rate 79 Respiratory Rate 15 Blood Pressure 113/83 Pulse Oximetry 99 Oxygen Delivery Me thod Room Air Oxygen Flow Rate 8 Fraction of Inspir ed Oxygen Hydration adequate: Yes Nausea and vomiting: No Pain level: 3 Mental status: Baseline
== END 2021-02-13 14:56 | disposition home or self-care (01) ==
PROVIDERS: PCP Family Medicine; Visit Provider Obstetrics & Gynecology
PROC: 0UDB8ZZ Extraction of Endometrium, Via Natural or Artificial Opening Endoscopic (ICD-10-PCS; CPT 58558; principal; 2021-02-13 12:40)
PROC: (CPT 58120; 2021-02-13 12:40)
DX: N88.8 Other specified noninflammatory disorders of cervix uteri (principal); N94.5 Secondary dysmenorrhea; K21.9 Gastro-esophageal reflux disease without esophagitis; E11.9 Type 2 diabetes mellitus without complications; E66.01 Morbid (severe) obesity due to excess calories; Z68.42 Body mass index [BMI] 45.0-49.9, adult
CPT/HCPCS: 58558; 36416; 81025; 82962; 84703; 88305; J0690; J1100; J1885; J2405; J2704; J2710; J3010; J3490; J7030

== ENCOUNTER → 2021-04-06 07:42 | Outpatient (BNVA) | payer MEDICARE, MEDICAID, SELFPAY | PROVIDERS: PCP Family Medicine; Visit Provider Nurse Practitioner | DX: F41.1 Generalized anxiety disorder (principal); F63.81 Intermittent explosive disorder; F70 Mild intellectual disabilities | CPT/HCPCS: 99214 ==

== ENCOUNTER → 2021-06-18 10:54 | Outpatient (BNVA) | payer MEDICARE, MEDICAID, SELFPAY | PROVIDERS: PCP Family Medicine; Visit Provider Nurse Practitioner | DX: F41.1 Generalized anxiety disorder (principal); F63.81 Intermittent explosive disorder; F70 Mild intellectual disabilities; Z72.0 Tobacco use | CPT/HCPCS: 99214 ==

== ENCOUNTER → 2021-07-18 15:23 | Outpatient (BNVA) | payer MEDICARE, MEDICAID, SELFPAY | PROVIDERS: PCP Family Medicine; Visit Provider Nurse Practitioner | DX: F70 Mild intellectual disabilities (principal); F41.1 Generalized anxiety disorder; F63.81 Intermittent explosive disorder; Z72.0 Tobacco use | CPT/HCPCS: 99214 ==

== ENCOUNTER → 2021-08-15 13:14 | Outpatient (BNVA) | payer MEDICARE, MEDICAID, SELFPAY | PROVIDERS: PCP Family Medicine; Visit Provider Nurse Practitioner | DX: F70 Mild intellectual disabilities (principal); F63.81 Intermittent explosive disorder; F41.1 Generalized anxiety disorder; Z72.0 Tobacco use | CPT/HCPCS: 99214 ==

== ENCOUNTER → 2021-12-14 11:14 | Outpatient (BNVA) | payer MEDICARE, MEDICAID, SELFPAY | PROVIDERS: PCP Family Medicine; Visit Provider Obstetrics & Gynecology | DX: N92.6 Irregular menstruation, unspecified (principal); N64.4 Mastodynia | CPT/HCPCS: 84146; 84443 ==

== ENCOUNTER 2022-01-01 11:12 | Outpatient (CLI) | payer MEDICARE, MEDICAID, SELFPAY | END 2022-01-01 11:13 | disposition home or self-care (01) | LOC: RT 11:13 | PROVIDERS: PCP Family Medicine; Visit Provider Family Medicine | DX: R06.89 Other abnormalities of breathing (principal) | CPT/HCPCS: 94010; 94726; 94729 ==

== ENCOUNTER 2022-01-22 11:31 | Outpatient (CLI) | payer MEDICARE, MEDICAID, SELFPAY ==
--- NOTE | 2022-01-22 | US_ITS ---
DIAGNOSTIC BILATERAL DIGITAL BREAST TOMOSYNTHESIS MAMMOGRAPHY WITH CAD BILATERAL BREAST ULTRASOUND, LIMITED HISTORY: Clear nipple discharge. COMPARISON: None available. TECHNIQUE: Bilateral craniocaudad, mediolateral oblique, and mediolateral views are submitted with tomosynthesis and SM. Spot compression LEFT CC and RIGHT CC. Computer aided detection utilized. Breast composition: There are scattered areas of fibroglandular density. No abnormalities are noted within either breast. There is no nipple retraction or dilated duct or mass. A few benign scattered calcifications. Bilateral breast ultrasound, limited. Ultrasound is directed around the nipple and subareolar regions. There are no dilated ducts or mass. No nipple retraction. IMPRESSION: BI-RADS: 2-Benign FOLLOW UP: Age 38 MTDD
--- NOTE | 2022-01-22 11:43 | MM_ITS ---
WS: [id number] DIAGNOSTIC BILATERAL DIGITAL BREAST TOMOSYNTHESIS MAMMOGRAPHY WITH CAD BILATERAL BREAST ULTRASOUND, LIMITED HISTORY: Clear nipple discharge. COMPARISON: None available. TECHNIQUE: Bilateral craniocaudad, mediolateral oblique, and mediolateral views are submitted with to mosynthesis and SM. Spot compression LEFT CC and RIGHT CC. Computer aided detection utilized. Breast composition: There are scattered areas of fibroglandular density. No abnormalities are noted w ithin either breast. There is no nipple retraction or dilated duct or mass. A few benign scattered ca lcifications. Bilateral breast ultrasound, limited. Ultrasound is directed around the nipple and subareolar regions. There are no dilated ducts or mass. No nipple retraction. MM/[place] [id number] IMPRESSION: BI-RADS: 2-Benign FOLLOW UP: Age 38
== END 2022-01-22 11:32 | disposition home or self-care (01) ==
LOC: RAD 11:32
PROVIDERS: PCP Family Medicine; Visit Provider Family Medicine
DX: N64.52 Nipple discharge (principal)
CPT/HCPCS: 76642; 77062; G0279

== ENCOUNTER 2022-02-04 12:50 | Outpatient (CLI) | payer MEDICARE, MEDICAID, SELFPAY ==
--- NOTE | 2022-02-04 13:00 | MR_ITS ---
WS: [id number] MRI BRAIN WITHOUT AND WITH CONTRAST, ATTENTION DIRECTED TO THE PITUITARY GLAND HISTORY: E22.1 - Hyperprolactinemia COMPARISON: None available. TECHNIQUE: Diffusion-weighted imaging, axial T2 sequence, and postcontrast images in 3 planes are per formed. High-resolution coronal and sagittal imaging performed through the pituitary region with and without intravenous gadolinium. MultiHance 20 mL IV. No diffusion-weighted abnormality. No hemorrhage. Symmetric appearance of the brain with no prior inf arct, abnormal enhancement or small vessel ischemic disease. Pituitary gland remains midline and symm etric. No deviation of the optic chiasm or infundibulum. No enhancing mass or nonenhancing lesion les ion in the pituitary gland. Ventricles are normal size. No inferior displacement of the cerebellar tonsils. Mucoperiosteal thickening in the sphenoid sinuses. No air-fluid levels. MR/MR pituitary wo/w con* [id number] IMPRESSION: 1. Negative MRI pituitary gland. No microadenoma or macroadenoma. 2. Sphenoid sinus disease. 3. Otherwise MRI brain is negative.
[2022-02-04] MEDS: gadobenate dimeglumine 20 mL vial IV (14:19)
== END 2022-02-04 12:51 | disposition home or self-care (01) ==
PROVIDERS: PCP Family Medicine; Visit Provider Obstetrics & Gynecology
DX: E22.1 Hyperprolactinemia (principal)
CPT/HCPCS: 70553; A9577

== ENCOUNTER → 2022-11-12 11:26 | Outpatient (BNVA) | payer MEDICARE, SELFPAY | PROVIDERS: PCP Family Medicine Adult Medicine; Visit Provider Family Medicine Adult Medicine | DX: E11.69 Type 2 diabetes mellitus with other specified complication (principal); E66.01 Morbid (severe) obesity due to excess calories | CPT/HCPCS: 83036 ==

== ENCOUNTER 2024-06-21 15:52 | Outpatient (CLI) | payer MEDICARE, MEDICAID, SELFPAY ==
--- NOTE | 2024-06-21 16:24 | XRR_ITS ---
PROCEDURE INFORMATION: Exam: XR Right Hip Exam date and time: 06/21/2024 4:30 PM Age: 33 years old Clinical indication: Lower back pain and right hip pain that feels like stabbing for 3 mo without specific injury; Additional info: Pain in right hip TECHNIQUE: Imaging protocol: Radiologic exam of the right hip. Views: 1 view hip with pelvis when performed. COMPARISON: CR XR lumbar spine min 4V [id number] 06/21/2024 4:30 PM FINDINGS: Bones/joints: Unremarkable. No acute fracture. Soft tissues: Unremarkable. XR/XR hip RT 2-3V wo/w pel* [id number] IMPRESSION: No acute findings.
--- NOTE | 2024-06-21 16:25 | XRR_ITS ---
PROCEDURE INFORMATION: Exam: XR Lumbosacral Spine Exam date and time: 06/21/2024 4:30 PM Age: 33 years old Clinical indication: Low back pain; Lower back pain and right hip pain that feels like stabbing for 3 mo without specific injury; Additional info: Lumbar radiculopathy TECHNIQUE: Imaging protocol: Radiologic exam of the lumbosacral spine. Views: 4 or 5 views. COMPARISON: CR XR hip RT 2-3V wo/w pel* [id number] 06/21/2024 4:30 PM FINDINGS: Bones/joints: No subluxation. Mild lumbar levoscoliosis. Minimal marginal spurring at multiple levels. No fracture. Minimal marginal spurring at multiple levels. Lower lumbar facet arthropathy. Disc spaces are preserved. Soft tissues: Unremarkable. XR/XR lumbar spine min 4V [id number] IMPRESSION: Mild multilevel lumbar spondylosis. No acute abnormality.
== END 2024-06-21 15:53 | disposition home or self-care (01) ==
LOC: RAD 15:57
PROVIDERS: PCP Family Medicine; Visit Provider Family Medicine
DX: M25.551 Pain in right hip (principal); M54.16 Radiculopathy, lumbar region; M47.896 Other spondylosis, lumbar region; M41.86 Other forms of scoliosis, lumbar region
CPT/HCPCS: 72110; 73502

== ENCOUNTER → 2024-07-09 15:29 | Outpatient (BNVA) | payer MEDICARE, MEDICAID, SELFPAY | PROVIDERS: PCP Family Medicine; Visit Provider Nurse Practitioner | DX: R52 Pain, unspecified (principal) | CPT/HCPCS: 73130 ==

== ENCOUNTER → 2024-11-09 16:38 | Outpatient (BNVA) | payer MEDICARE, MEDICAID, OTHER, SELFPAY | PROVIDERS: PCP Family Medicine | DX: R52 Pain, unspecified (principal) | CPT/HCPCS: 87400; 87426 ==

== ENCOUNTER → 2024-12-21 10:49 | Outpatient (BNVA) | payer MEDICARE, MEDICAID, SELFPAY | PROVIDERS: PCP Family Medicine; Visit Provider Podiatrist Foot & Ankle Surgery | DX: M79.671 Pain in right foot (principal); M79.672 Pain in left foot; M20.12 Hallux valgus (acquired), left foot; M20.11 Hallux valgus (acquired), right foot | CPT/HCPCS: 73630; 99204 ==